=== PATIENT | female | born 1945 | race Caucasian/White ===

== ENCOUNTER 2017-03-18 05:52 | Day surgery (SDC) | payer OTHER ==
[~2017-03-18] VITALS: Ht 154.9 cm; Wt 80.3 kg
--- NOTE | ~2017-03-18 | O ---
[facility] [place] [address] OPERATIVE REPORT Name: FERNANDEZ ESCALANTE Room #: 150-3 [facility]..#: [id number] Admission: 03/18/17 Attend Phys: Brennan Avina MD Discharge: Date of : 45 Report #: [id number] THIS REPORT FOR: //name// CC: ALANA Avina DATE OF SERVICE: 03/18/2017 SURGEON: Brennan Avina MD DIE REPAIRER STAMPING: None. PREOPERATIVE DIAGNOSIS: Bilateral lower lid ectropion. POSTOPERATIVE DIAGNOSIS: Bilateral lower lid ectropion. OPERATION PERFORMED: Bilateral lower lid ectropion repair. ANESTHESIA: Local with IV sedation. COMPLICATIONS: None. INDICATIONS FOR PROCEDURE: This patient has bilateral acquired lower lid ectropion with chronic tearing and discharge. The current procedures are undertaken in order to improve the patient's visual function, lacrimal outflow, and level of comfort. Informed consent was obtained to include but not limit to the risk of loss of vision, bleeding, infection, scarring, failure to improve the problem and need for further surgery. DESCRIPTION OF OPERATION: The patient was taken to the operating room where 2% Xylocaine with epinephrine mixed with equal parts of 0.75% Marcaine with Wydase was administered transcutaneously and transconjunctivally to each lower lid and lateral canthal area. The patient was then prepped and draped in the usual sterile fashion. A Jaswinder clamp was then used to clamp the left lateral canthus following which a sharp canthotomy and cantholysis were performed. The tarsal strip was prepared laterally, removing the lash bearing portion of the redundant lid margin and the redundant tarsal plate. Hemostasis was achieved with a monopolar cautery, as it was throughout the case. The tarsal strip was then secured to the internal portion of the lateral orbital tubercle with two interrupted 5-0 Prolene sutures. The lateral canthal angle was sharply reformed as the subcutaneous structures and the skin were closed with multiple interrupted 6-0 plain gut sutures. Attention was then turned to the right side where the same procedure was [facility] [address] [place] [address] OPERATIVE REPORT Name: BERNARD ESCALANTENE Room #: 150-3 [facility].#: [id number] Admission: 03/18/17 Attend Phys: Brennan Avina MD Discharge: Date of : 45 Report #: [id number] performed. The wounds were cleaned and dressed with ophthalmic antibiotic ointment. The patient was then transported to the recovery area, having tolerated the procedure well with no anesthetic or operative complications being noted. By: [id number] Brenann Avina MD /nt
[~2017-03-18 05:52] MED LIST: ASPIR 8181 M1 PO; BIOTIN2500 MCG PO; CALCIUM 600 +1 EAC1 PO; ESTRACE0.5 MG PO; FENOFIBRATE160 MG PO; LISINOPRIL10 MG PO; PRILOSEC OTC20 MG PO; VITAMIN B-125000 MC1 PO; VITAMIN D31000 UNI2 PO; VITAMIN E400 UNI2 PO; ZYRTEC10 M5 PO
[2017-03-18 13:36] VITALS: BP 138/87
== END 2017-03-18 13:45 | disposition home or self-care (01) ==
LOC: OR 05:52 → TBA 05:52 → OR 12:18
DX: H02.105 Unspecified ectropion of left lower eyelid (principal); H02.102 Unspecified ectropion of right lower eyelid; I10 Essential (primary) hypertension; E78.00 Pure hypercholesterolemia, unspecified; K21.9 Gastro-esophageal reflux disease without esophagitis; Z90.710 Acquired absence of both cervix and uterus; Z98.890 Other specified postprocedural states; Z87.891 Personal history of nicotine dependence; Z98.41 Cataract extraction status, right eye; Z98.42 Cataract extraction status, left eye; Z96.1 Presence of intraocular lens; Z79.82 Long term (current) use of aspirin; Z79.899 Other long term (current) drug therapy; Z88.8 Allergy status to other drugs, medicaments and biological substances
CPT/HCPCS: 50010; 50101; 50386; 50398; 51636; 56527; 56531; 62110; 62850; 70005